=== PATIENT | female | born 1940 ===

== ENCOUNTER → 2017-02-26 | Outpatient (REF) ==
[2017-02-26 09:43] LABS: INR 1.2 (0.8-3.0)
== END ==
LOC: ZMSC 08:02
PROVIDERS: Orthopaedic Surgery
DX: Z01.89 Encounter for other specified special examinations (principal)

== ENCOUNTER → 2017-02-27 | Outpatient (REF) ==
[2017-02-27 04:43] LABS: HEMOGLOBIN 13.4 g/dl (12.5-16.0)
[2017-02-27 04:54] LABS: INR 1.2 (0.8-3.0); PROTHROMBIN TIME 13.5 SECONDS (9.7-12.8)
== END ==
LOC: ZMSC 04:38
PROVIDERS: Orthopaedic Surgery
DX: Z01.89 Encounter for other specified special examinations (principal)

== ENCOUNTER → 2017-02-28 | Outpatient (REF) ==
[2017-02-28 05:05] LABS: HEMATOCRIT 38.7 % (37.0-47.0); HEMOGLOBIN 12.2 g/dl (12.5-16.0)
[2017-02-28 05:07] LABS: INR 1.8 (0.8-3.0); PROTHROMBIN TIME 20.2 SECONDS (9.7-12.8)
== END ==
LOC: ZMSC 04:58
PROVIDERS: Orthopaedic Surgery
DX: Z01.89 Encounter for other specified special examinations (principal)